=== PATIENT | male | born 1950 | race Caucasian/White ===

== ENCOUNTER 2019-10-17 12:35 | Emergency (ER) | payer MEDICARE ==
[~2019-10-17] VITALS: Ht 185.4 cm; Wt 87.7 kg
[2019-10-17] MEDS ORDERED: normal saline 1000ml 1,000 ML IV ONE (13:35)
[2019-10-17 13:50] LABS: BASOPHILS # (AUTO) 0.1 X10'3 (0-0.2); BASOPHILS % (AUTO) 1.5 % (0-1); EOSINOPHILS # (AUTO) 0.2 X10'3 (0-0.9); EOSINOPHILS % (AUTO) 4.5 % (0-6); HEMATOCRIT 40.9 % (42.0-52.0); HEMOGLOBIN 13.9 g/dl (14.0-17.9); LYMPHOCYTES # (AUTO) 1.3 X10'3 (1.1-4.8); MEAN CORPUSCULAR HEMOGLOBIN 31.4 PG (27.0-31.0); MEAN CORPUSCULAR HGB CONC 34.1 g/dL (33.0-36.5); MEAN CORPUSCULAR VOLUME 92.2 FL (78-98); MEAN PLATELET VOLUME 7.3 FL (7.4-10.4); MONOCYTES # (AUTO) 0.5 X10'3 (0-0.9); MONOCYTES % (AUTO) 13.9 % (2-12); NEUTROPHILS # (AUTO) 1.8 X10'3 (1.8-7.7); NEUTROPHILS % (AUTO) 46.1 % (42-75); PLATELET COUNT 203 X10'3 (140-440); RED BLOOD COUNT 4.43 X10'6 (4.70-6.10); RED CELL DISTRIBUTION WIDTH 13.3 % (11.5-14.5); WHITE BLOOD COUNT 3.9 X10'3 (4.5-11.0)
[2019-10-17 14:07] LABS: ALANINE AMINOTRANSFERASE 37 U/L (12-78); ALBUMIN 3.7 G/DL (3.4-5.0); ALBUMIN/GLOBULIN RATIO 1.2 (1.1-1.5); ALKALINE PHOSPHATASE 70 IU/L (46-116); ANION GAP 6 (8-16); ASPARTATE AMINO TRANSFERASE 22 U/L (10-37); BILIRUBIN,TOTAL 0.4 MG/DL (0.1-1.0); BLOOD UREA NITROGEN 16 MG/DL (7-18); BUN/CREATININE RATIO 23.5 (5.4-32.0); CALCIUM 8.7 MG/DL (8.5-10.1); CHLORIDE 105 MMOL/L (99-107); CREATININE 0.68 MG/DL (0.60-1.10); GLUCOSE 116 MG/DL (70-104); MAGNESIUM 2.1 MG/DL (1.5-2.4); POTASSIUM 4.2 MMOL/L (3.5-5.1); SODIUM 137 MMOL/L (135-145); TOTAL CARBON DIOXIDE 26.1 MMOL/L (24-32); TOTAL PROTEIN 6.9 G/DL (6.4-8.2); eGFR > 90 ML/MIN
[2019-10-17 15:17] VITALS: BP 180/96
== END 2019-10-17 15:18 | disposition home or self-care (01) ==
LOC: ER 12:36
DX: E86.0 Dehydration (principal); J00 Acute nasopharyngitis [common cold]; R51 Headache
CPT/HCPCS: 36415; 80053; 83735; 84484; 85025; 93005; 99284; J7030

== ENCOUNTER 2025-08-23 12:15 | Emergency (ER) | payer MEDICARE ==
[~2025-08-23] VITALS: Ht 188 cm; Wt 82.1 kg
[2025-08-23 12:18] VITALS: TEMP 96.7
--- NOTE | 2025-08-23 13:10 | RADIOLOGY REPORT ---
CLINICAL INDICATION: Shoulder Pain TECHNIQUE: SHOULDERLTDI SHOULDER LTD 1 VIEW ONLY, right Comparison: None FINDINGS/IMPRESSION: : Comminuted oblique fracture of the humeral neck and proximal metadiaphysis with 1/4 shafts width medial displacement of the distal fragment.
[2025-08-23] MEDS: HYDROcodone/acetaminophen 10/325mg tab PO STA (13:19)
--- NOTE | 2025-08-23 13:20 | Physician Documentation ---
History of Present Illness ~ Chief Complaint: Mechanical Fall Stated Complaint: FALL Time Seen by MD: 12:54 Primary Medical Doctor: DR LINCOLN Mode of Arrival: POV, Wheelchair HPI Patient is seen today with complaints of having slipped and fallen earlier today. Patient states that he has severe pain in his right shoulder after slipping and falling and states he likely fractured his humerus or arm. Patient denied any head strike and denies any current chest pain or shortness of breath or abdominal pain or nausea, vomiting, diarrhea. Patient has no other concern or complaint at this time. Tetanus within 5 Years?: Yes Medication Reconciliation Allergies: Coded Allergies: No Known Allergies (Unverified , 10/17/19) Scheduled PRN Hydrocodone Bit/Acetaminophen (Hydrocodone-Apap 10-325 Tablet), 1 TAB PO TID PRN PRN for pain Past Medical History Past Medical History: No Pertinent History Past Surgical History: noncontributory Drug Use: none Lives In: Home Occupation: employed Review of Systems Constitutional: Denies: chills, fever, weakness Eyes: Denies: pain, blurred vision ENT: Denies: ear pain, nose pain, throat pain, mouth pain Respiratory: Denies: cough, shortness of breath Cardiovascular: Denies: chest pain, palpitations Gastrointestinal: Denies: abdominal pain, nausea, vomiting Genitourinary: Denies: burning, dysuria Male Genitalia: Denies: penile discharge, testicular pain Neurological: Denies: headache, dizziness Musculoskeletal: Denies: pain, swelling Integumentary: Denies: rash, lesions Allergic/Immunologic: Denies: hives, itching Hematologic/Lymphatic: Denies: no symptoms reported Psychiatric: Denies: depression, anxiety Physical Exam Vital Signs: Temperature: 96.7, Source: Temporal, Heart Rate: 74, Respiratory Rate: 16, BP: 158/88, Pulse Oximetry: 98, Weight: 82.100 Oxygen Flow Rate: 0 Physical Exam General: Awake and Alert, no acute distress. HEENT: Conjunctiva pink, Sclera clear, Mucus Membranes moist. Neck: Supple without masses and tenderness. Resp: Unlabored. Lungs clear to auscultation bilaterally. Heart: Regular Rate and rhythm, normal S1 and S2 without murmur, rub or gallop. Musculoskeletal: Patient on exam has significant decreased range of motion of the right shoulder due to pain and severe tenderness to palpation. Patient is neurovascularly intact distally. Motor function intact distally. Extremities: No cyanosis,clubbing or edema. Skin: Warm and Dry. Progress Results/Orders Results/Orders Orders - JENNY YING PAC Chest,Single View (08/23/25 13:20) Ortho Orders (08/23/25 14:25) Ondansetron Disint. Tablet (Zofran Odt T (08/23/25 15:07) Completed Orders - JENNY YING PAC Hydrocodone/Apap 10/325 (Monroe 10/325mg (08/23/25 13:06) Chest,Single View (08/23/25 13:20) Medications Received in ER Medications (Trade) Dose Ordered Sig/Diane Route PRN Reason Start Time Stop Time Status Last Admin Dose Admin (Monroe 10/325mg tab) 1 tab ONCE STAT PO 08/23/25 13:06 08/23/25 13:08 DC 08/23/25 13:19 1 TAB Vital Signs 08/23/25 08/23/25 08/23/25 08/23/25 12:18 12:56 12:56 13:19 Temp 96.7 Pulse 70 74 Resp 16 16 16 16 B/P (MAP) 185/100 158/88 (111) Pulse Ox 99 98 O2 Flow Rate 0 0 08/23/25 15:03 Resp 16 EKG/XRAY/CT/US/VASC/MRI Chest X-Ray : Additional Comments Chest x-ray interpreted by myself today shows no large effusion, no large infiltrate, normal mediastinum. DIAGNOSTIC RADIOLOGY Patient: CESILIA GILMAN Medical Record: [id number] [facility] : 1950, Age: 75 Sex: Male Location: ER Patient Status: REG ER Service Date/Time: 08/23/251319 Ordering Physician: JENNY YING PAC Exam: CHEST,SINGLE VIEW EXAM: DI CHEST,SINGLE VIEW Indication: rib pain right side Technique: Single frontal view of the chest was obtained Comparison: None FINDINGS: Lines and Tubes: None Lungs: No focal consolidation. Pleura: No effusion. No pneumothorax. Cardiomediastinal contours: Unremarkable Bones: No acute osseous abnormality. IMPRESSION: No acute cardiopulmonary disease. Electronically Signed by:CELSA RODRIGUEZ MD Date & Time: 08/23/251407 Dictated by: CELSA RODRIGUEZ MD Dictation date and time: 08/23/251407 Primary Care Provider: NO PRIMARY CARE PROVIDER cc: JENNY YING PAC ~ Bone/Soft Tissue X-Ray (Ext.) : Additional Comment X-ray of right shoulder interpreted by myself today shows Comminuted oblique fracture of the humeral neck and proximal metadiaphysis with 1/4 shafts width medial displacement of the distal fragment. DIAGNOSTIC RADIOLOGY Patient: CESILIA GILMAN Medical Record: [id number] [facility] : 1950, Age: 75 Sex: Male Location: ER Patient Status: [facility] ER Service Date/Time: 08/23/251224 Ordering Physician: CELSA YANES MD Exam: SHOULDER LTD 1 VIEW ONLY CLINICAL INDICATION: Shoulder Pain TECHNIQUE: SHOULDERLTDI SHOULDER LTD 1 VIEW ONLY, right Comparison: None FINDINGS/IMPRESSION: : Comminuted oblique fracture of the humeral neck and proximal metadiaphysis with 1/4 shafts width medial displacement of the distal fragment. Electronically Signed by:MELANIE DONNELLY MD Date & Time: 08/23/251307 Dictated by: MELANIE DONNELLY MD Dictation date and time: 10/07/25 1308 Primary Care Provider: NO PRIMARY CARE PROVIDER cc: CELSA YANES MD ~ Medical Decision Making Findings Patient is seen today with complaints of having slipped and fallen earlier today. Patient states that he has severe pain in his right shoulder after slipping and falling and states he likely fractured his humerus or arm. Patient denied any head strike and denies any current chest pain or shortness of breath or abdominal pain or nausea, vomiting, diarrhea. Patient has no other concern or complaint at this time. I did contact Dr. Pavon who recommended patient go into a shoulder immobilizer and offered to see the patient in his office later this week or early next week. Patient was given Monroe 10/325 mg one tab by mouth in the ED today. Prescription of Monroe sent to patient's pharmacy to be taken as directed. Patient will return to ED with any worsening, concerning or changing symptoms. I did review with the patient his x-ray of the right humerus that did show comminuted fracture of the proximal right humerus. Possibly requiring surgical intervention and I highly recommended patient follow up with an accounts specialist. Departure Disposition: HOME / SELF CARE / HOMELESS Impression: Primary Impression: Fracture of humerus Qualified Codes: S42.291A - Other displaced fracture of upper end of right humerus, initial encounter for closed fracture Condition: Stable Discharge Instructions: Humerus Fracture Treated With Immobilization Additional Instructions: I did contact Dr. Pavon who recommended patient go into a shoulder immobilizer and offered to see the patient in his office later this week or early next week. Patient was given Monroe 10/325 mg one tab by mouth in the ED today. Prescription of Monroe sent to patient's pharmacy to be taken as directed. Patient will return to ED with any worsening, concerning or changing symptoms. I did review with the patient his x-ray of the right humerus that did show comminuted fracture of the proximal right humerus. Possibly requiring surgical intervention and I highly recommended patient follow up with an accounts specialist. Referrals: NO PRIMARY CARE PROVIDER (PCP) Prescriptions ONDANSETRON ODT 4mg tablet (ONDANSETRON ODT) 4 Mg Tab.rapdis 4 MG PO BID for 7 Days, #14 TAB Prov: JENNY YING PAC 08/23/25 Oxycodone HCl/Acetaminophen (Percocet 5-325 mg Tablet) 5 Mg-325 Mg Tablet 1 TAB PO Q12H PRN PRN for pain for 5 Days, #10 TAB 0 Refills Prov: JENNY YING 08/23/25 Hydrocodone Bit/Acetaminophen (Hydrocodone-Apap 10-325 Tablet) 10mg/325mg Tablet 1 TAB PO TID PRN PRN for pain for 7 Days, #21 TAB Prov: JENNY YING 08/23/25 Signature Scribe Signature: No scribe Attestation: No scribe JENNY YING PAC Aug 23, 2025 13:20
--- NOTE | 2025-08-23 14:11 | RADIOLOGY REPORT ---
EXAM: DI CHEST,SINGLE VIEW Indication: rib pain right side Technique: Single frontal view of the chest was obtained Comparison: None FINDINGS: Lines and Tubes: None Lungs: No focal consolidation. Pleura: No effusion. No pneumothorax. Cardiomediastinal contours: Unremarkable Bones: No acute osseous abnormality. IMPRESSION: No acute cardiopulmonary disease.
[2025-08-23] MEDS ORDERED: HYDR-3973 PO (14:23)
[2025-08-23 15:06] VITALS: BP 140/79; PULSE 75; RESP 16; O2SAT 98
[2025-08-23] MEDS ORDERED: OXYC-145 PO (15:08)
[2025-08-23] MEDS ORDERED: ONDA-243 PO (15:13)
[2025-08-23] MEDS: ondansetron 4mg rapidly disintigrating tab PO STA (15:37)
[2025-08-23] MEDS: ondansetron 4mg rapidly disintigrating tab PO ONE (15:37)
== END 2025-08-23 15:41 | disposition home or self-care (01) ==
LOC: ER 12:16
DX: S42.211A Unspecified displaced fracture of surgical neck of right humerus, initial encounter for closed fracture (principal); W01.0XXA Fall on same level from slipping, tripping and stumbling without subsequent striking against object, initial encounter; Y93.89 Activity, other specified; Y92.89 Other specified places as the place of occurrence of the external cause; Y99.8 Other external cause status
CPT/HCPCS: 29105; 71045; 73020; 99284; A4565

== ENCOUNTER 2025-08-29 14:25 | Outpatient (CLI) | payer MEDICARE ==
[~2025-08-29 14:25] MED LIST: HYDR-3973 PO; ONDA-243 PO; OXYC-145 PO
--- NOTE | 2025-08-29 20:17 | RADIOLOGY REPORT ---
INDICATION: UNSP DISP FX OF SURG NK OF R HUMER, SUBS FOR FX W ROUTN HEAL COMPARISON: SHOULDER [facility] 1 VIEW ONLY on DOS: 08/23/25 TECHNIQUE: CT of the right shoulder was performed without contrast. Volume transverse images were obtained and reconstructed in multiple planes using bone and soft tissue algorithms. CONTRAST: None Radiation Dose Information: CTDI volume is 25.07 mGy. Dose-length product is 745.31 mGy*cm FINDINGS: Highly comminuted fracture of the humeral head and neck with 1/2 shaft with medial displacement of distal fragments and impaction. Mild apex anterior angulation. Fracture extends into the base of the tuberosities. No articular surface disruption. Glenoid is unremarkable. The imaged portions of the mediastinum and right hemithorax are normal. IMPRESSION: Comminuted, mildly displaced, mildly angulated proximal humeral fracture. All CT scans at this medical facility are performed using dose modulation techniques as appropriate to a performed exam including the following: Automated exposure control was utilized; adjustment of the MA and/or KV according to patient size; and use of iterative reconstruction technique.
== END 2025-08-29 23:59 | disposition home or self-care (01) ==
LOC: RAD 14:25
PROVIDERS: ATTEND Physician Assistant
DX: S42.211D Unspecified displaced fracture of surgical neck of right humerus, subsequent encounter for fracture with routine healing (principal); X58.XXXD Exposure to other specified factors, subsequent encounter
CPT/HCPCS: 73200